=== PATIENT | female | born 1960 ===

== ENCOUNTER 2017-02-22 11:47 | Emergency (ER) | payer OTHER, SELFPAY ==
[2017-02-22 12:20] VITALS: BP 139/68; PULSE 61; RESP 18; TEMP 97; O2SAT 98
--- NOTE | 2017-02-22 12:53 | ED PDOC ---
HPI: Chest Pain Time Seen by Provider: 02/22/17 12:37 Chief Complaint (Nursing): Headache Chief Complaint (Provider): Headache & chest pain History Per: Patient History/Exam Limitations: no limitations Onset/Duration Of Symptoms: Days (4), Waxing/Waning Associated Symptoms: denies: Other (Fever or cough) Additional Complaint(s): Rajani Eubanks is a 56 year old female, with a past medical history of hypertension, diabetes, arthritis and osteoporosis, who presents to the emergency department complaining of headache and chest pain associated with left arm and left leg numbness onset 4 days ago. Patient reports symptoms come and go. She states yesterday she had a blood pressure of around 140 associated with left arm numbness and pain. She denies any fever, or cough. No further medical complaints. PMD: None provided. - Risk Factors TAD Risk Factors: Pos: Hypertension Past Medical History Reviewed: Historical Data, Nursing Documentation, Vital Signs Vital Signs: Last Vital Signs Temp 97 F L 02/22/17 12:18 Pulse 61 02/22/17 12:18 Resp 18 02/22/17 12:18 BP 139/68 02/22/17 12:18 Pulse Ox 98 02/22/17 13:16 - Medical History PMH: Arthritis, Diabetes, HTN, Osteoporosis - Surgical History Surgical History: Appendectomy - Family History Family History: States: Unknown Family Hx - Social History Current smoker - smoking cessation education provided: No Alcohol: None Drugs: Denies - Home Medications Home Medications: Ambulatory Orders Medication Instructions Recorded Acetaminophen/Oxycodone Hydr 1 tab PO Q6 #15 tab 12/26/13 [Percocet 325 mg-5 mg] Amlodipine Besylate [Norvasc] 5 mg PO 12/26/13 Naproxen [Naprosyn] 1 tab PO BID PRN #25 tab 12/26/13 Ciprofloxacin [Cipro] 500 mg PO BID #14 tab 10/02/15 Cyclobenzaprine [Cyclobenzaprine 10 mg PO Q8 PRN #30 tab 10/02/15 HCl] Naproxen [Naprosyn] 500 mg PO Q12H #20 tab 12/22/15 traMADol [Ultram] 50 mg PO Q8 #10 tab 12/22/15 - Allergies Allergies/Adverse Reactions: Allergies Allergy/AdvReac Type Severity Reaction Status Date / Time No Known Allergies Allergy Verified 02/22/17 12:18 Review of Systems Constitutional: Negative for: Fever Cardiovascular: Positive for: Chest Pain Respiratory: Negative for: Cough Musculoskeletal: Positive for: Arm Pain (left arm numbness), Leg Pain (left leg numbness) Neurological: Positive for: Headache Physical Exam - Reviewed Vital Signs Reviewed: Yes - Physical Exam Appears: Positive for: Well, Non-toxic, No Acute Distress Head Exam: Positive for: ATRAUMATIC, NORMAL INSPECTION, NORMOCEPHALIC Skin: Positive for: Normal Color, Warm, Dry Eye Exam: Positive for: EOMI, Normal appearance, PERRL Neck: Positive for: Normal, Painless ROM, Supple Respiratory: Negative for: Respiratory Distress Extremity: Positive for: Normal ROM. Negative for: Pedal Edema, Deformity, Swelling Neurologic/Psych: Positive for: Alert, Oriented - Laboratory Results Result Diagrams: 02/22/17 13:10 02/22/17 13:10 - ECG ECG Rhythm: Positive for: Sinus Bradycardia (59 bpm no ectopy no acute changes) O2 Sat by Pulse Oximetry: 98 (RA) Pulse Ox Interpretation: Normal - Progress ED Course And Treament: cxr: nad asa 324mg x 1 dose d/w Dr. Goode. Patient does not want to stay observation for chest pain evaluation. d/w her risks of /evolving [place]/permanent disability. AMA paperwork signed by her. Medical Decision Making Medical Decision Making: Initial Impression: headache and chest pain Initial Plan: --EKG --Comp Metabolic Panel --Magnesium --Troponin I --CBC w/ differential --Chest Portable [RAD] --Aspirin Chewable 324 mg PO --reevaluation Scribe Attestation: Documented by Wayne Rivera, acting as a scribe for Linette TINOCO Provider Scribe Attestation: All medical record entries made by the Scribe were at my direction and personally dictated by me. I have reviewed the chart and agree that the record accurately reflects my personal performance of the history, physical exam, medical decision making, and the department course for this patient. I have also personally directed, reviewed, and agree with the discharge instructions and disposition. Disposition - Clinical Impression Clinical Impression: Chest pain - Patient ED Disposition Is Patient to be Admitted: No - Disposition Disposition: Against Medical Advice Disposition Time: 15:25 Condition: FAIR Forms: [employer] ([place])
[2017-02-22 13:18] LABS: BASO % 0.6 % (0.0-2.0); EOS # 0.1 K/uL (0.0-0.7); EOS % 1.8 % (0.0-4.0); HEMATOCRIT 37.6 % (34.0-47.0); LYMPH # 1.9 K/uL (1.0-4.3); LYMPH % 25.1 % (20.0-40.0); MEAN CELL VOLUME 86.7 fl (81.0-99.0); MEAN CORPUSCULAR HEMOGLOBIN 28.6 pg (27.0-31.0); MONO # 0.6 K/uL (0.0-0.8); MONO % 7.3 % (0.0-10.0); NEUT # 5.1 K/uL (1.8-7.0); NEUT % 65.2 % (50.0-75.0); RED CELL DISTRIBUTION WIDTH 14.2 % (11.5-14.5); WHITE BLOOD COUNT 7.7 K/uL (4.8-10.8)
[2017-02-22 13:41] LABS: ALB/GLOB RATIO 1.2 (1.0-2.1); ALKALINE PHOSPHATASE 54 U/L (38-126); ALT/SGPT 33 U/L (9-52); AST/SGOT 25 U/L (14-36); BILIRUBIN,TOTAL 0.3 mg/dl (0.2-1.3); BLOOD UREA NITROGEN 16 mg/dl (7-17); CALCIUM 9.1 mg/dL (8.4-10.2); CARBON DIOXIDE 26 mmol/L (22-30); CHLORIDE 103 mmol/L (98-107); GFR AFRICAN-AMERICAN > 60; GLUCOSE,RANDOM 116 mg/dL (65-105); MAGNESIUM 2.2 MG/DL (1.6-2.3); POTASSIUM 3.7 MMOL/L (3.6-5.0); SODIUM 139 mmol/l (132-148); TOTAL PROTEIN 7.7 G/DL (6.3-8.2)
--- NOTE | 2017-02-22 14:51 | RAD ---
HISTORY: Chest pain COMPARISON: No prior. FINDINGS: LUNGS: The lungs are well inflated and clear. PLEURA: No significant pleural effusion identified, no pneumothorax apparent. CARDIOVASCULAR: Normal. OSSEOUS STRUCTURES: No significant abnormalities. VISUALIZED UPPER ABDOMEN: Normal. OTHER FINDINGS: None. IMPRESSION: No active pulmonary disease.
--- NOTE | 2017-02-23 13:00 | CARD ---
APPROVED REPORT EKG Measurement Heart [id number] DC [id number] <Conclusion> Sinus bradycardia Otherwise normal ECG
== END 2017-02-22 15:21 | disposition left against medical advice (07) ==
LOC: H.ER 11:47
DX: R07.89 Other chest pain (principal); R51 Headache; E11.9 Type 2 diabetes mellitus without complications; I10 Essential (primary) hypertension; M81.0 Age-related osteoporosis without current pathological fracture